=== PATIENT | male | born 1990 | race Caucasian/White ===

== ENCOUNTER 2017-02-23 06:54 | Inpatient (IN) | payer BC, OTHER ==
[~2017-02-23] VITALS: Ht 170.2 cm; Wt 72.6 kg
--- NOTE | 2017-02-23 06:45 | NUR ---
Pre-Admission Note: Patient assessed in intake office at 06:45 on 02/23/2017. Patient is ambulatory with steady gait, stable, A&OX4. Patient noted to be guarded and offers little information during assessment. Patient states that he is here to safely detox from methadone and lorazepam. Patient reports taking methadone 50mg daily for 2-3 years, having tapered down from 80mg which he took for 1.5 years. Patient last took methadone on 02/20/2017 at 06:00. Patient reports taking lorazepam 20mg daily for 3 years. Patient last took lorazepam on 02/22/2017. VS: 128/62, 104, 98.3, 16, 97% Spo2 on RA. Patient reports 6/10 generalized pain at this time. Patient also reports nausea, stomach cramps, chills, and sensitivity to light. Pupils are 4mm. Patient reports NKDA/NKFA. Patient instructed on unit protocol of vitals Q4H and COWS/CIWA assessments. Patient verbalized understanding and agreement. Patient also instructed on policy regarding destruction of any controlled substances/prescriptions brought to facility, and handling of all medications. Patient verbalized understanding and agreement. Day shift nurse to complete admission assessment when patient is brought up to unit.
[2017-02-23 09:05] VITALS: BP 115/67
[2017-02-23] MEDS ORDERED: ACETAMINOPHEN 325 MG TABLET PO PRN (09:45)
[2017-02-23] MEDS ORDERED: LORAZEPAM 1 MG TABLET PO PRN ×2 (09:45)
[2017-02-23] MEDS ORDERED: MAGNESIUM HYDROXIDE 30 ML LIQUID UDC PO PRN (09:45)
[2017-02-23] MEDS ORDERED: diphenhydrAMINE 50 MG CAPSULE PO PRN (09:45)
[2017-02-23] MEDS ORDERED: LORAZEPAM 2 MG/1 ML VIAL IM PRN (09:45)
[2017-02-23] MEDS ORDERED: IBUPROFEN 600 MG TABLET PO PRN (09:45)
[2017-02-23] MEDS ORDERED: LOPERAMIDE HCL 2 MG CAPSULE PO PRN ×2 (09:45)
[2017-02-23] MEDS ORDERED: MAG HYDROX/AL HYDROX/SIMETH 30 ML LIQUID UDC PO PRN (09:45)
[2017-02-23] MEDS ORDERED: ONDANSETRON 4 MG/2 ML VIAL IM PRN (09:45)
[2017-02-23] MEDS ORDERED: BUPRENORPHINE HCL 2 MG TAB.SUBL SL PRN ×2 (09:45→21:00)
[2017-02-23] MEDS ORDERED: CHLO118L TP (10:41)
[2017-02-23] MEDS ORDERED: OMEP20CA10 PO (10:42)
[2017-02-23] MEDS ORDERED: TEST200V3 IM (10:43)
[2017-02-23] MEDS ORDERED: NEOM28.37 TP (10:44)
[2017-02-23 10:48] LABS: BASOPHILS % (AUTO) 0.7 % (0.0-2.0); EOSINOPHILS % (AUTO) 0.6 % (0.0-7.0); HEMATOCRIT 42.1 % (36.7-47.1); HEMOGLOBIN 14.8 g/dL (12.5-16.3); LYMPHOCYTES # (AUTO) 1.2 K/uL (20.0-40.0); MEAN CORPUSCULAR HEMOGLOBIN 31.4 uug (23.8-33.4); MEAN CORPUSCULAR HGB CONC 35 g/dL (32.5-36.3); MEAN CORPUSCULAR VOLUME 88.8 fL (73.0-96.2); MONOCYTES # (AUTO) 0.2 K/uL (2.0-10.0); NEUTROPHILS # (AUTO) 2.7 K/uL (1.8-8.9); NEUTROPHILS % (AUTO) 64.7 % (38.5-71.5); PLATELET COUNT (AUTO) 319 K/uL (152-348); RED BLOOD CELL COUNT(AUTO) 4.73 MIL/uL (4.06-5.63); WHITE BLOOD COUNT (AUTO) 4.1 K/uL (3.6-10.2)
--- NOTE | 2017-02-23 11:00 | NUR ---
ADMISSION NOTE 26 year old admitted for methadone, ativan, percocet, and Heroin substance abuse. History of pituitary tumor treated with hormone medication and bilateral mastectomy 2 years ago. Had left carpal tunnel and left cubital tunnel surgery 2 weeks ago. History of anxiety and depression, constipation, stomach ulcer, multiple fractures when in high school due to competitive diving with fractures of collar bone, wrist, hip and tendon tear from hip to back due to diving as well. Skin check noting healing incision with steristrips to left elbow, no redness or drainage. Left hand incision form carpal tunnel release healed. Right shoulder with multiple old scars for which pt states he has had multiple MRSA wound infections from using Heroin IM. Substance history as follows. 1. Methadone, using 50 mg PO/day for 4 years, last dose 02/20/17 and took 50 mg PO at that time. 2. Heroin, intermittent use, last use 3 months ago, using Heroin x 3-4 years, states generally uses 0.5 gm per day IM. 3. Ativan, using 20 mg/day PO for 1 year. Last dose today, this am, took 4 mg. 4. Percocet 20-30 mg/day PO, using at this level for 1.5-2 months, last use today in am, took 5 mg. At 0944, COWS 10, CIWA 8. AT 1200 COWS 4 and CIWA 4, pt reporting no pain and stated original statement of pain 11/27 at 0944 due to surgical incisional pain. Oriented to unit. Call loco within reach. Bed in low position and locked. Side rails up x 2. Will continue to monitor.
[2017-02-23 11:06] LABS: ALANINE AMINOTRANSFERASE 22 U/L (16-63); ALKALINE PHOSPHATASE 69 U/L (50-136); ASPARTATE AMINOTRANSFERASE 18 U/L (15-37); BILIRUBIN,TOTAL 0.3 mg/dL (0.2-1.0); CARBON DIOXIDE 28 mmol/L (21-32); CHLORIDE 101 mmol/L (98-107); CREATININE 1.4 mg/dL (0.6-1.3); GLUCOSE 160 mg/dL (74-106); MAGNESIUM 1.6 mg/dL (1.8-2.4); POTASSIUM 3.8 mmol/L (3.5-5.1); TOTAL PROTEIN, SERUM 7.6 g/dL (6.4-8.2); UREA NITROGEN, BLOOD 22 mg/dL (7-18)
[2017-02-23 11:17] LABS: *AMPHETAMINE, URINE NEGATIVE (NEGATIVE); *BARBITURATE, URINE NEGATIVE (NEGATIVE); *CANNABINOID, URINE POSITIVE (NEGATIVE); *COCCAINE, URINE NEGATIVE (NEGATIVE); *OPIATE, URINE POSITIVE (NEGATIVE); *PHENCYCLIDINE SCREEN,URINE NEGATIVE (NEGATIVE)
[2017-02-23 11:40] LABS: ETHANOL < 3 MG/DL (0-0)
[2017-02-23 12:30] VITALS: BP 107/59
[2017-02-23] MEDS ORDERED: MAGNESIUM OXIDE 400 MG TABLET PO ONE (13:00)
[2017-02-23] MEDS: GABAPENTIN 300 MG CAPSULE PO SCH ×2 (14:29→21:58)
[2017-02-23] MEDS: DICYCLOMINE HCL 20 MG TABLET PO PRN (18:05)
[2017-02-23] MEDS: ONDANSETRON ODT 4 MG TAB.RAPDIS SL PRN (18:05)
[2017-02-23] MEDS: CLONIDINE HCL 0.1 MG TABLET PO PRN (18:05)
--- NOTE | 2017-02-23 18:05 | NUR ---
PRN MEDICATION ADMINISTRATION Given Ativan 1 mg po for COWS 6. Given Clonidine for anxiety, Bentyl and zofran for slight stomach cramps and slight nausea.
--- NOTE | 2017-02-23 19:05 | NUR ---
END OF SHIFT NOTE. 26 year old admitted for methadone, ativan, percocet and heroin substance disorder. COWS 6 at 1805, given Ativan 1 mg po PRN. 1805 given clonidine, bentyl and zofran PRN. Report given to night RN. Night RN states she will reassess PRN medication effectiveness. Call light within reach, bed in low position an locked, side rails up x 2. Safety measures observed.
--- NOTE | 2017-02-23 19:15 | NUR ---
START OF SHIFT Received 26 year old male patient admitted on 02/23/17 for Methadone, Heroin, Ativan and Percocet dependency. Pt is full code with allergy to Lunesta. Pt reports a PMHx of pituitary tumors, stomach ulcers, anxiety, and depression. Pt reports using Methadone 50 mg daily for 4 years. Last dose was 50 mg PO on 02/20/17. Heroin 0.5 gram IM daily for 4 years. Last dose was 0.5 grams 3 months ago. Ativan 20 mg PO daily for 1 year. Last dose was 4 mg on 02/23/17. And Percocet 20-30 mg daily for 1-2 months. Last dose was 5 mg on 02/23/17. Pt is scheduled to start 6 day Ativan and 6 day Subutex taper tomorrow 02/24/17. Per endorsement, pt noted with s/p left elbow ligament release sx. Pt noted with steristrips on left elbow. He received PRN Ativan, Clonidine, Zofran, and Bentyl. Pt is alert and oriented x4, breathing is even and unlabored. Safety measures in place. Will monitor.
[2017-02-23 20:00] VITALS: BP 100/49
[2017-02-23] MEDS ORDERED: LORAZEPAM 1 MG TABLET PO SCH (21:00)
[2017-02-24] VITALS: BP 99/57
--- NOTE | 2017-02-24 | NUR ---
COWS/CIWA DEFERRED Pt lying in bed with eyes closed noted to be asleep. Respirations 16, breathing is even and unlabored. Safety measures in place. Will monitor.
--- NOTE | 2017-02-24 04:00 | NUR ---
COWS/CIWA DEFERRED Pt lying in bed with eyes closed noted to be asleep. Respirations 16, breathing is even and unlabored. Safety measures in place. Will monitor.
--- NOTE | 2017-02-24 07:27 | NUR ---
END OF SHIFT Pt is a 26 year old male patient admitted on 02/23/17 for Methadone, Heroin, Ativan and Percocet dependency. Pt is full code with allergy to Lunesta. Pt reports a PMHx of pituitary tumors, stomach ulcers, anxiety, and depression. Pt is scheduled to start 6 day Ativan and 6 day Subutex taper today 02/24/17. He did not receive or request PRN medications. He slept a total of 10 hrs, Intake: 1000mL, Void: x2, BM:0, COWS:1. Pt remains alert and oriented x4, breathing is even and unlabored. Safety measures in place. Endorsed to oncoming shift.
--- NOTE | 2017-02-24 07:30 | NUR ---
Start Of Shift Report Received. Pt is a 26 year old male patient admitted on 02/23/17 for Methadone, Heroin, Ativan and Percocet dependency. Pt is full code with allergy to Lunesta. Pt reports a PMHx of pituitary tumors, stomach ulcers, anxiety, and depression. Pt is scheduled to start 6 day Ativan and 6 day Subutex taper today tolerating well. Pt did not receive any PRN medications last night per shift superintendent caustic cresylate note. He slept a total of 10 hrs. Encouraged pt to drink fluids to help facilitate with detox process. Pts last CIWA 6 COWS 6. Patient received awake, alert and oriented x3, All needs met, all safety measures in place, call light within reach bed in lowest locked position, will continue to monitor and provide care.
[2017-02-24 08:00] VITALS: BP 123/62
[2017-02-24 08:06] LABS: HEPATITIS B SURFACE AG Negative (Negative)
[2017-02-24] MEDS ORDERED: TUBERCULIN,PURIF.PROT.DERIV. 5 TU/0.1 ML TEST ID ONE (09:00)
[2017-02-24] MEDS: LORAZEPAM 1 MG TABLET PO SCH ×4 (09:41→21:08)
[2017-02-24] MEDS: ARIPIPRAZOLE 2 MG TABLET PO SCH (09:41)
[2017-02-24] MEDS: GABAPENTIN 300 MG CAPSULE PO SCH ×2 (09:41→16:38)
[2017-02-24] MEDS: ESCITALOPRAM OXALATE 10 MG TABLET PO SCH (09:41)
[2017-02-24] MEDS: MULTIVITAMINS,THERAPEUTIC TABLET PO SCH (09:41)
[2017-02-24] MEDS: BUPRENORPHINE HCL 2 MG TAB.SUBL SL SCH ×4 (09:42→21:08)
[2017-02-24 12:00] VITALS: BP 131/79
[2017-02-24] MEDS: DICYCLOMINE HCL 20 MG TABLET PO PRN (14:43)
[2017-02-24] MEDS: METHOCARBAMOL 750 MG TABLET PO PRN (14:43)
[2017-02-24] MEDS: CLONIDINE HCL 0.1 MG TABLET PO PRN (14:43)
[2017-02-24] MEDS: MIRALAX 17 GM POWD.PACK PO PRN (14:44)
[2017-02-24] MEDS: HYDROXYZINE PAMOATE 25 MG CAPSULE PO PRN (14:44)
[2017-02-24 16:00] VITALS: BP 136/80
--- NOTE | 2017-02-24 19:37 | NUR ---
End Of Shift Report Given. Pt is a 26 year old male patient admitted on 02/23/17 for Methadone, Heroin, Ativan and Percocet dependency. Pt is full code with allergy to Lunesta. Pt reports a PMHx of pituitary tumors, stomach ulcers, anxiety, and depression. Pt is scheduled to start 6 day Ativan and 6 day Subutex taper today tolerating well. VS monitored closely q 4 hours. Withdrawal symptoms were closely monitored. Initial CIWA 9 and COWS 12. Patient encouraged adequate PO fluid intake as tolerated. Patient presented with tremors and anxiety during the day. Last CIWA and COWS 7. Per patient, Taper medications have been helping him with his withdrawal symptoms. Pt ate all of his meals. Pt received PRN Robaxin, Bentyl, Vistaril, Tylenol, Zofran IM, Clonidine, Miralax which were effective. Patient encouraged to attend group therapies/sessions to learn new coping skills to recent relapse, patient denies SI/HI. Participated in group and therapy sessions. All needs met and attended
--- NOTE | 2017-02-24 19:40 | NUR ---
START OF SHIFT Pt is a 26 year old male patient admitted for Methadone, Heroin, Ativan and Percocet dependency. Pt is full code with allergy to Lunesta. Pt reports a PMH of pituitary tumors, stomach ulcers, anxiety, and depression. Pt continues on Ativan and Subutex taper as ordered and is tolerating well. Last CIWA=7 and COWS=7. Pt received awake in bed in stable condition.Pt is A/O X 4.All safety measures in place per hospital policy,call light within reach. All needs met and attended,will continue to monitor for safety.
[2017-02-24 20:00] VITALS: BP 120/70
[2017-02-24] MEDS ORDERED: GABAPENTIN 300 MG CAPSULE PO SCH (21:00)
[2017-02-24] MEDS ORDERED: GABAPENTIN 300 MG CAPSULE ONE (21:20)
[2017-02-25] VITALS: BP 109/64
--- NOTE | 2017-02-25 04:00 | NUR ---
COWS/CIWA DEFERRED,V/S REFUSED. Pt is resting in bed with eyes closed,fast asleep. Respirations are even and unlabored.No s/s of distress noted. Safety measures in place. Will continue to monitor.
--- NOTE | 2017-02-25 06:41 | NUR ---
END OF SHIFT Pt is a 26 year old male patient admitted for Methadone, Heroin, Ativan and Percocet dependency. Pt is full code with allergy to Lunesta. Pt reports a PMHx of pituitary tumors, stomach ulcers, anxiety, and depression. Pt continues on Ativan and Subutex taper as ordered and is tolerating well. Last CIWA =4 and COWS =3. No PRN meds given this shift.Pt slept 6.5 hrs,fluid intake was 1,000 mls,voided x 1.All safety measures in place per hospital policy,call light within reach. All needs met and attended,will continue to monitor for safety.
--- NOTE | 2017-02-25 07:40 | NUR ---
START OF SHIFT NOTE Received report from night nurse, 26 year old male for Methadone/ Heroin/Ativan/Percocet dependence. Pt reports a PMH of pituitary tumors, stomach ulcers, anxiety, and depression. Patient cont on Ativan/Subutex taper tolerating well. Per endorsement pt did not receive any PRN, last CIWA-4, COWS-3, Pt slept fro 7 hours. Patient received awake, alert and oriented x4, educated regarding plan of care for the day and medication regimen with good verbal understanding. Safety measures in place. call light kept with in reach, will continue to monitor.
[2017-02-25 08:00] VITALS: BP 126/76
[2017-02-25] MEDS ORDERED: GABAPENTIN 300 MG CAPSULE PO SCH ×2 (09:00→21:00)
[2017-02-25] MEDS: ARIPIPRAZOLE 2 MG TABLET PO SCH (09:24)
[2017-02-25] MEDS: MULTIVITAMINS,THERAPEUTIC TABLET PO SCH (09:24)
[2017-02-25] MEDS: ESCITALOPRAM OXALATE 10 MG TABLET PO SCH (09:25)
[2017-02-25] MEDS: LORAZEPAM 1 MG TABLET PO SCH ×3 (09:25→21:00)
[2017-02-25] MEDS: BUPRENORPHINE HCL 2 MG TAB.SUBL SL SCH ×3 (09:25→21:01)
[2017-02-25] MEDS: METHOCARBAMOL 750 MG TABLET PO PRN (09:37)
--- NOTE | 2017-02-25 09:37 | NUR ---
PRN ROBAXIN Pt c/o of muscle aches 10/28, Pt provided with non pharmacological intervention with no relief. Administered PRN Robaxin 750mg Po 1 tab as ordered. Will cont to monitor and reassess.
--- NOTE | 2017-02-25 10:37 | NUR ---
ROBAXIN REASSESSMENT Pt reported medication effective muscle aches subside to 2/.
[2017-02-25 12:00] VITALS: BP 128/78
[2017-02-25] MEDS: ONDANSETRON ODT 4 MG TAB.RAPDIS SL PRN (13:13)
[2017-02-25] MEDS: CLONIDINE HCL 0.1 MG TABLET PO PRN (13:14)
--- NOTE | 2017-02-25 13:14 | NUR ---
PRN ZOFRAN/CLONIDINE Pt c/o of nausea,anxiety, agitation, sweats. Pt provided with non pharmacological intervention with no relief. Administered PRN Zofran 4mg SL, Clonidine 0.1 mg Po as ordered. Will cont to monitor and reassess.
--- NOTE | 2017-02-25 13:34 | NUR ---
CRISTEL REASSESSMENT pt reported medication effective nausea improved. Addendum: 02/25/17 at 1453 by ELSI WALKER LVN [id number] correct time
[2017-02-25] MEDS ORDERED: IBUPROFEN 600 MG TABLET PO PRN (13:45)
[2017-02-25] MEDS ORDERED: IBUPROFEN 800 MG TABLET PO PRN (14:00)
--- NOTE | 2017-02-25 14:14 | NUR ---
CLONIDINE REASSESSMENT Pt reported medication effective anxiety/agitation/ subside and decreased sweats.
[2017-02-25] MEDS: ACETAMINOPHEN ES 500 MG TABLET PO SCH ×2 (14:27→20:59)
[2017-02-25] MEDS: GABAPENTIN 300 MG CAPSULE PO SCH (14:29)
--- NOTE | 2017-02-25 15:52 | NUR ---
CARE ENDORSED All pertinent information given and care endorsed to nurse in charge.
[2017-02-25 16:00] VITALS: BP 110/62
--- NOTE | 2017-02-25 16:00 | NUR ---
RECEIVED ENDORSMENT FOR CONTINUED CARE 26 year old male for Methadone/ Heroin/Ativan/Percocet dependence. Pt reports a PMH of pituitary tumors, stomach ulcers, anxiety, and depression. Patient cont on Ativan/Subutex taper tolerating well. 1600 rounds patient not in room, is in group. Will continue to monitor.
[2017-02-25] MEDS: HYDROXYZINE PAMOATE 25 MG CAPSULE PO PRN (17:00)
--- NOTE | 2017-02-25 17:00 | NUR ---
PRN MEDICATION ADMINISTRATION Complaint of anxiety 11/27. Given Vistaril PRN.
--- NOTE | 2017-02-25 19:00 | NUR ---
END OF SHIFT NOTE Received report from day nurse going home at 1530, care of patient received. 26 year old male for Methadone/ Heroin/Ativan/Percocet dependence. Pt reports a PMH of pituitary tumors, stomach ulcers, anxiety, and depression. Patient cont on Ativan/Subutex taper tolerating well. At 1700, CIWA 5, COWS 5. Reporting anxiety, given Vistaril at 1700 PRN. 1800 Pt reporting decrease in anxiety. Report given to night RN. Bed in low position and locked, side rails up x 2 and padded, call loco within reach.
--- NOTE | 2017-02-25 19:25 | NUR ---
START OF SHIFT Patient is a 26-year-old male, admitted on 02/23/17 for Methadone, Heroin, Ativan, and Percoet substance abuse. Patient has past medical history of pituitary tumor, treated with hormone therapy and s/p bilateral mastectomy 2 years ago. PMHx also includes anxiety, depression, stomach ulcers, constipation, s/p carpal tunnel of left wrist and left elbow 2 weeks ago (steri-strips in place), and several past fractures related to diving in high school. Patient is FULL CODE, allergic to Lunesta, and on regular diet. Patient is on 6 day Ativan taper and 6 day Subutex taper, tolerating well. Upon assessment, patient is awake, alert and oriented x4. Patient's steri-strips at left elbow are in place, no signs of redness or inflammation noted. Patient complains of mild-moderate levels of anxiety and bilateral lower extremity muscle aches. Respirations are even and unlabored. Patient is on fall and seizure precautions, bed is in low position, side rails up x2, safety measures in place, call light within reach. Will continue to monitor. Addendum: 02/26/17 at 2343 by GILES SPIVEY LVN ERROR IN DATE AND TIME
[2017-02-25 20:00] VITALS: BP 121/70
--- NOTE | 2017-02-25 20:00 | NUR ---
Start of Shift Pt is a 26 year old male admitted for Opiate/Benzo dependence, placed on 5 day Ativan and 5 day Subutex taper. Pt reported using methadone 50mg/daily, Heroin 0.5g/daily, Ativan 20mg/daily and Percocet 20-30mg/daily. PMH: Pituitary tumor, bilateral mastectomy 2 years ago, left carpal tunnel and left cubital tunnel surgery 2 weeks ago, anxiety, depression, constipations, stomach ulcer, multiple factures of collar bone, wrist, hip and tendon tear from hip to back. Pt is allergic to eszopiclone, regular diet, fall/seizure precautions and full code. Upon assessment, pt presents with anxiety, reports bilateral lower extremity muscle aches, skin is flushed, reports hot/cold, respirations even/unlabored, denies SOB/chest pain, denies n/v/d, medications due. Safety measures in place, call light within reach, side rails up x2, bed locked and in low position. Will continue to monitor.
[2017-02-26] VITALS: BP 101/69
--- NOTE | 2017-02-26 | NUR ---
Vital Signs BP 101/69, pulse 78, resp 16, Spo2 98% room air, temp 97.8, no pain CIWA/COWS deferred due to pt sleeping, to assess while pt is awake as ordered. Safety measures in place, will continue to monitor.
[2017-02-26 04:00] VITALS: BP 113/67
--- NOTE | 2017-02-26 04:00 | NUR ---
Vital Signs BP 113/67, pulse 82, resp 16, Spo2 99% room air, temp 98.1, no pain CIWA/COWS deferred due to pt sleeping, to assess while pt is awake as ordered. Safety measures in place, will continue to monitor.
--- NOTE | 2017-02-26 07:00 | NUR ---
End of Shift Pt is a 26 year old male admitted for Opiate/Benzo dependence, placed on 5 day Ativan and 5 day Subutex taper. Pt reported using methadone 50mg/daily, Heroin 0.5g/daily, Ativan 20mg/daily and Percocet 20-30mg/daily. PMH: Pituitary tumor, bilateral mastectomy 2 years ago, left carpal tunnel and left cubital tunnel surgery 2 weeks ago, anxiety, depression, constipations, stomach ulcer, multiple factures of collar bone, wrist, hip and tendon tear from hip to back. Pt is allergic to eszopiclone, regular diet, fall/seizure precautions and full code. During shift, pt presented with anxiety, reported bilateral lower extremity muscle aches, skin is flushed, reports hot/cold - scheduled taper medications administered, CIWA 7 and COWS 7. No PRN medications administered during shift. Pt slept for 6 hours, intake of 500 ml PO, voids x1 and stool x0. Safety measures in place, call light within reach, side rails up x2, bed locked and in low position. Will continue to monitor.
--- NOTE | 2017-02-26 07:38 | NUR ---
START OF SHIFT Pt is a 26 yr old male, AA&Ox4. Pt was admitted on 02/23/17 for Opiate/Benzo Dependence and is on 5 day Ativan and 5 day Subutex taper as ordered. Medication dina well. Received report from control center operator nurse. No PRN's were given during the night. Pt slept for 6 hrs. Last COWS score was 7, CIWA score was 7 at 2000. Pt is c/o anxiety this morning but is able to cope with anxiety level. Skin is warm and dry to touch. Fine tremors are observed. Pt denies any n/v. Encouraged increase fluid intake. Safety precautions observed. Bed kept in low position and locked with side rails up x2. Call light is within reach. Will continue to monitor.
[2017-02-26 08:08] VITALS: BP 98/54
[2017-02-26] MEDS: ACETAMINOPHEN ES 500 MG TABLET PO SCH ×3 (08:54→21:53)
[2017-02-26] MEDS: MULTIVITAMINS,THERAPEUTIC TABLET PO SCH (08:54)
[2017-02-26] MEDS: GABAPENTIN 300 MG CAPSULE PO SCH (08:54)
[2017-02-26] MEDS: ARIPIPRAZOLE 2 MG TABLET PO SCH (08:54)
[2017-02-26] MEDS: LORAZEPAM 1 MG TABLET PO SCH ×2 (08:54→12:40)
[2017-02-26] MEDS: ESCITALOPRAM OXALATE 10 MG TABLET PO SCH (08:55)
[2017-02-26] MEDS ORDERED: BUPRENORPHINE HCL 2 MG TAB.SUBL SL SCH (09:00)
[2017-02-26 12:00] VITALS: BP 113/62
--- NOTE | 2017-02-26 12:22 | NUR ---
NSG NOTES Pt's urine drug screen was positive for marijuana. Pt states "I smoke randomly". Pt can not recall last use.
[2017-02-26] MEDS: METHOCARBAMOL 750 MG TABLET PO PRN (12:49)
[2017-02-26] MEDS: CLONIDINE HCL 0.1 MG TABLET PO PRN (12:49)
--- NOTE | 2017-02-26 12:49 | NUR ---
PRN GIVEN Pt c/o increase anxiety and muscle aching /10. Clonidine 0.1mg PO PRN and Robaxin 750mg PO PRN as ordered. Medication dina well. Ativan 1mg PO was administered as scheduled at 1300. Medication dina well. Will continue to monitor.
--- NOTE | 2017-02-26 13:49 | NUR ---
PRN RE-ASSESSMENT Clonidine PO PRN and Robaxin PRN was effective. Pt is in bed resting with respirations even and unlabored. No acute distress noted. Safety precautions observed. Will continue to monitor.
[2017-02-26] MEDS: BACLOFEN 10 MG TABLET PO SCH ×2 (14:46→21:53)
[2017-02-26] MEDS: GABAPENTIN 400 MG CAPSULE PO SCH ×2 (14:46→21:52)
[2017-02-26] MEDS: BUPRENORPHINE HCL 2 MG TAB.SUBL SL SCH ×2 (14:46→21:53)
[2017-02-26] MEDS ORDERED: NAPROXEN 500 MG TABLET PO ONE (15:00)
[2017-02-26 16:00] VITALS: BP 116/77
[2017-02-26] MEDS ORDERED: LORAZEPAM 1 MG TABLET PO SCH ×2 (17:00→21:00)
--- NOTE | 2017-02-26 18:50 | NUR ---
END OF SHIFT Pt is a 26 yr old male, AA&Ox4. Pt was admitted on 02/23/17 for Opiate/Benzo Dependence and is on 5 day Ativan and 5 day Subutex taper as ordered. Medication dina well. Pt has been cooperative with medication regimen and plan of care. Pt was observed attending group sessions as offered. Pt was given Clonidine PRN and Robaxin PRN at 1249 for anxiety and muscle aching. Medication was effective. Last COWS score was 6 and CIWA score was 5 at 1600. Pt is c/o anxiety. Skin is warm and dry to touch. No tremors seen or felt. Pt is c/o abdominal cramping and muscle aches but is able to tolerate pain level. Pt was encouraged increase fluid intake for hydration. Safety precautions observed. Bed kept in low position and locked with side rails up x2. Call light is within reach.
--- NOTE | 2017-02-26 19:25 | NUR ---
START OF SHIFT Patient is a 26-year-old male, admitted on 02/23/17 for Methadone, Heroin, Ativan, and Percoet substance abuse. Patient has past medical history of pituitary tumor, treated with hormone therapy and s/p bilateral mastectomy 2 years ago. PMHx also includes anxiety, depression, stomach ulcers, constipation, s/p carpal tunnel of left wrist and left elbow 2 weeks ago (steri-strips in place), and several past fractures related to diving in high school. Patient is FULL CODE, allergic to Lunesta, and on regular diet. Patient is on 6 day Ativan taper and 6 day Subutex taper, tolerating well. Upon assessment, patient is awake, alert and oriented x4. Patient's steri-strips at left elbow are in place, no signs of redness or inflammation noted. Patient complains of mild-moderate levels of anxiety and bilateral lower extremity muscle aches. Respirations are even and unlabored. Patient is on fall and seizure precautions, bed is in low position, side rails up x2, safety measures in place, call light within reach. Will continue to monitor.
[2017-02-26 20:00] VITALS: BP 115/67
[2017-02-26] MEDS: NAPROXEN 500 MG TABLET PO SCH (21:53)
[2017-02-26] MEDS: CLONIDINE HCL 0.1 MG TABLET PO SCH (21:54)
[2017-02-26] MEDS: ONDANSETRON ODT 4 MG TAB.RAPDIS SL PRN (23:11)
--- NOTE | 2017-02-26 23:11 | NUR ---
PRN ZOFRAN Patient complains of nausea, no emesis reported. SL Zofran 4mg given at 2311. Patient's respirations are even and unlabored. Will reassess within an hour. Safety measures in place, bed in lowest position, side rails up x2, call light within reach.
[2017-02-26] MEDS: KETOROLAC TROMETHAMINE 30 MG INJ IM PRN (23:18)
--- NOTE | 2017-02-26 23:18 | NUR ---
PRN TORADOL Patient complains of pain 8/10 at incision site, left elbow; requesting pain medication. PRN Toradol 30mg/1mL IV given at 2318 at left deltoid; patient tolerated well. Patient's respirations are even and unlabored. Safety measures in place, bed in lowest position, side rails up x2, call light within reach.
--- NOTE | 2017-02-26 23:41 | NUR ---
PRN ZOFRAN REASSESSMENT Upon reassessment, PRN Zofran was effective. Patient denies nausea at this time. Patient's respirations even and unlabored, safety measures in place. Will continue to monitor.
--- NOTE | 2017-02-26 23:48 | NUR ---
PRN TORADOL REASSESSMENT Upon reassessment, PRN Toradol was effective. Patient reports pain level is now 4/10 at incision site (left elbow). No swelling, redness or inflammation noted at incision site at this time. Patient's respirations are even and unlabored, safety measures in place, call light within reach. Will continue to monitor.
[2017-02-27 00:05] VITALS: BP 114/72
--- NOTE | 2017-02-27 00:32 | NUR ---
ENDER CONTE AND VISTARIL ADMINISTRATION PATIENT STATES HE'S ANXIOUS, UNABLE TO SLEEP, RESTLESS AND NOTED PACING AROUND UNIT.WILL MONITOR FOR EFFECTIVENESS. Addendum: 02/28/17 at 0157 by ROXY SALVADOR LVN ERROR IN CHARTING.
--- NOTE | 2017-02-27 04:00 | NUR ---
VITAL SIGNS REFUSED, CIWA & COWS DEFERRED Patient refused to have vitals taken at 0400; respirations 16/min, even and unlabored. CIWA and COWS deferred due to patient being asleep, to be assessed while awake per protocol. Safety measures in place, bed in low position with side rails up x2, call light within reach. Will continue to monitor.
--- NOTE | 2017-02-27 07:30 | NUR ---
END OF SHIFT Patient is a 26-year-old male, admitted on 02/23/17 for Methadone, Heroin, Ativan, and Percoet substance abuse. Patient is FULL CODE, allergic to Lunesta, and on regular diet. Patient is on 6 day Ativan taper and 6 day Subutex taper, tolerating well. PRN Zofran 4mg SL was given at 2311 for c/o nausea; upon reassessment at 2341, medication was effective. Patient denied nausea. PRN Toradol 30mg/1mL IM was administered at 2318 at patients left deltoid, for c/o pain 8/10 at patients left elbow incision site; patient tolerated well. Upon reassessment at 2348, patient reported that pain level had decreased from 8/10 to 4/10. Patient is alert and oriented x4. Patients steri-strips at left elbow are in place, no signs of redness or inflammation noted; no discharge at this time. Patient slept total of 3.5 hrs, intake 1210mL, void x2, stool x0. Respirations are even and unlabored. Patient is on fall and seizure precautions, bed is in low position, side rails up x2, safety measures in place, call light within reach. Will endorse to day shift.
[2017-02-27 08:00] VITALS: BP 117/72
--- NOTE | 2017-02-27 08:00 | NUR ---
START OF SHIFT NOTE Patient is a 26-year-old male, admitted on 02/23/17 for Methadone, Heroin, Ativan, and Percoet substance abuse. Patient is FULL CODE, allergic to Lunesta, and on regular diet. Patient is on 6 day Ativan taper and 6 day Subutex tape. Received report from night RN. Received Zofran and Toradol PRN. Last CIWA 3 and COWS 3. On 0800 pt rounds, pt alert and oriented. Bed in low position and locked, side rails up x 2, call loco within reach. Will continue to monitor.
--- NOTE | 2017-02-27 08:00 | NUR ---
START OF SHIFT NOTE 28 year old male admitted 02/21/17 for ETOH substance abuse. ON 5 day ativan taper. NKA. Reg diet, full code. Hx anxiety, depression, Bipolar disorder. No history of seizure. Received report from night RN. Received zofran and toradol PRN. Last COWS 3 and CIWA 3. 0800 pt rounds, pt alert and oriented. . Bed in low position and locked, side rails up x 2, call loco within reach. Will continue to monitor. Addendum: 02/27/17 at 1921 by JERMAN DOYLE RN ERROR, note entered on wrong patient. Disregard note.
[2017-02-27] MEDS: GABAPENTIN 400 MG CAPSULE PO SCH (08:58)
[2017-02-27] MEDS: BACLOFEN 10 MG TABLET PO SCH (08:58)
[2017-02-27] MEDS: ACETAMINOPHEN ES 500 MG TABLET PO SCH ×3 (08:59→21:03)
[2017-02-27] MEDS: ARIPIPRAZOLE 2 MG TABLET PO SCH (08:59)
[2017-02-27] MEDS: NAPROXEN 500 MG TABLET PO SCH ×2 (08:59→21:02)
[2017-02-27] MEDS ORDERED: LORAZEPAM 1 MG TABLET PO SCH (09:00)
[2017-02-27] MEDS: BUPRENORPHINE HCL 2 MG TAB.SUBL SL SCH ×3 (09:00→21:03)
[2017-02-27] MEDS: ESCITALOPRAM OXALATE 10 MG TABLET PO SCH (09:01)
[2017-02-27] MEDS: FAMOTIDINE 20 MG TABLET PO SCH (09:01)
[2017-02-27] MEDS: MULTIVITAMINS,THERAPEUTIC TABLET PO SCH (09:01)
[2017-02-27] MEDS: CLONIDINE HCL 0.1 MG TABLET PO SCH ×3 (09:01→21:03)
[2017-02-27 09:11] LABS: CREATININE 0.9 mg/dL (0.6-1.3); MAGNESIUM 1.9 mg/dL (1.8-2.4); POTASSIUM 4.5 mmol/L (3.5-5.1)
[2017-02-27 12:00] VITALS: BP_SYST 116; BP_SYST 120; BP_DIAS 74; BP_DIAS 84
--- NOTE | 2017-02-27 13:10 | NUR ---
PRN MEDICATION ADMINISTRATION At 1310, pt states he has a cold with sore throat, body aches, cough. Given Tylenol, robaxin, robitussin syrup, and cepacol lozenges. Also reports anxiety. Given Clonidine PRN. Addendum: 02/27/17 at 1921 by JERMAN DOYLE RN ERROR, note entered on wrong patient. Disregard note.
[2017-02-27] MEDS ORDERED: BUPRENORPHINE HCL 2 MG TAB.SUBL SL ONE (13:30)
--- NOTE | 2017-02-27 14:10 | NUR ---
PRN MEDICATION REASSESSMENT 1409, pt reports sore throat, cough and body aches relieved. Continues to report anxiety, but states Dr. Upton stated he will receive and additional ativan today so does not want any other PRN medications. RN notified pt that Ativan has not been ordered at this time. Anticipating discharge tomorrow. Addendum: 02/27/17 at 1920 by JERMAN DOYLE RN ERROR, note entered on wrong patient. Disregard note.
[2017-02-27] MEDS: GABAPENTIN 300 MG CAPSULE PO SCH ×2 (14:32→21:02)
[2017-02-27] MEDS: DICYCLOMINE HCL 20 MG TABLET PO SCH ×2 (14:33→21:01)
[2017-02-27] MEDS: DIAZEPAM 10 MG TABLET PO SCH ×2 (14:34→21:03)
[2017-02-27] MEDS: BACLOFEN 20 MG TABLET PO SCH ×2 (14:34→21:02)
[2017-02-27] MEDS: KETOROLAC TROMETHAMINE 30 MG INJ IM PRN (14:53)
--- NOTE | 2017-02-27 14:53 | NUR ---
PRN MEDICATION ADMINISTRATION Given Vistaril for post surgical pain from cubital tunnel release, 09/27
--- NOTE | 2017-02-27 15:23 | NUR ---
PRN MEDICATION REASSESSMENT Given Vistaril for post surgical pain from cubital tunnel release, reported good pain relief with vistaril.
[2017-02-27 16:30] VITALS: BP 119/75
--- NOTE | 2017-02-27 19:19 | NUR ---
END OF SHIFT NOTE 28 year old male admitted 02/21/17 for ETOH substance abuse. ON 5 day ativan taper. NKA. Reg diet, full code. Hx anxiety, depression, Bipolar disorder. No history of seizure. At 0948, door closer mechanic with CIWA 20. Dr. pUton notified. Dr. Upton requested rn relief charge to assess CIWA. Charge nurse assess CIWA as 8. MD notified. At 1200 and at 1730, CIWA 8. Appetite good with consumption 100 percent for all meals. Fluid intake 1500 mls. At 1310, pt states he has a cold with sore throat, body aches, cough. Given Tylenol, robaxin, robitussin syrup, and cepacol lozenges. Also reports anxiety. Given Clonidine PRN. 1410, pt reports sore throat, cough and body aches relieved. Continues to report anxiety, but states Dr. Upton stated he will receive and additional ativan today so does not want any other PRN medications. RN notified pt that Ativan has not been ordered at this time. Anticipating discharge tomorrow. At 1730, pt reports anxiety but refused Vistaril PRN. Report given to night RN. Bed in low position and locked, side rails up x 2, call loco within reach. Addendum: 02/27/17 at 1921 by JERMAN DOYLE RN ERROR, note entered on wrong patient. Disregard note. Addendum: 02/27/17 at 1926 by JERMAN DOYLE RN ERROR. NOTE ENTERED FOR WRONG PATIENT. DISREGARD NOTE.
--- NOTE | 2017-02-27 19:29 | NUR ---
END OF SHIFT NOTE Patient is a 26-year-old male, admitted on 02/23/17 for Methadone, Heroin, Ativan, and Percoet substance abuse. Patient is FULL CODE, allergic to Lunesta, and on regular diet. Patient is on 6 day Ativan taper and 6 day Subutex taper, tolerating well with last COWS 2and CIWA 3. Given Vistaril for post surgical pain from cubital tunnel release, reported good pain relief with vistaril. Appetite good, eating 100 percent of meals, 1738 ml fluid intake, one void. Report given to night RN. Bed in low position and locked, side rails up x 2, call loco within reach.
[2017-02-27 20:00] VITALS: BP 111/68
--- NOTE | 2017-02-27 20:00 | NUR ---
START OF SHIFT NOTE RECEIVED REPORT FROM DAY SHIFT NURSE. PATIENT IS A 26 YEAR OLD MALE ADMITTED FOR OPIATE/BENZO DEPENDENCE. CONTINUE ON ATIVAN AND SUBUTEX TAPER, TOLERATED WELL. PATIENT IS ALLERGIC TO LUNESTA. PATIENT COMPLIANT WITH MEDICATION AND TREATMENT PLAN. PATIENT WAS ANXIOUS DURING THE DAY. PATIENT WAS GIVEN EXTRA VALIUM AND PRN TORADOL IM . LAST COWS 2 AND CIWA 3. RECEIVED PATIENT ALERT AND ORIENTED X 4. RESPIRATION EVEN AND UNLABORED. PATIENT REPORTS SEVERE ANXIETY, STUFFY NOSE, NO N/V, PAIN ON LEFT ELBOW /10. APPETITE IS GOOD. ON FALL/SEIZURE PRECAUTION. SAFETY MEASURES IN PLACE. CALL LIGHT IN REACH. WILL CONTINUE TO MONITOR Addendum: 02/28/17 at 0725 by ROXY SALVADOR LVN ERROR: PATIENT IS ON VALIUM TAPER NOW , HE WAS ON ATIVAN TAPER.
--- NOTE | 2017-02-27 21:16 | NUR ---
PRN MOM ADMINISTRATION PATIENT STATES HE DOESN'T HAVE BM .PRN MOM GIVEN. WILL MONITOR FOR EFFECTIVENESS. ENCOURAGE FLUIDS.
[2017-02-28] VITALS: BP 114/64
[2017-02-28] MEDS: HYDROXYZINE PAMOATE 25 MG CAPSULE PO PRN (00:32)
--- NOTE | 2017-02-28 00:32 | NUR ---
PRN CATAPRES AND VISTARIL ADMINISTRATION PATIENT STATES HE'S ANXIOUS, UNABLE TO SLEEP, RESTLESS AND NOTED PACING AROUND UNIT.WILL MONITOR FOR EFFECTIVENESS.
[2017-02-28] MEDS: CLONIDINE HCL 0.1 MG TABLET PO PRN (00:34)
--- NOTE | 2017-02-28 01:32 | NUR ---
PRN CATAPRES AND VISTARIL RE-ASSESSMENT PATIENT STATES HE FEELS MUCH BETTER, LESS ANXIOUS. CATAPRES AND VISTARIL HELPFUL. WILL CONTINUE TO MONITOR.
[2017-02-28] MEDS: KETOROLAC TROMETHAMINE 30 MG INJ IM PRN ×2 (01:37→23:06)
--- NOTE | 2017-02-28 01:37 | NUR ---
PRN TORADOL IM ADMINISTRATION PATIENT C/O LEFT ELBOW PAIN 12/19. PRN TORADOL IM. WILL MONITOR FOR EFFECTIVENESS
--- NOTE | 2017-02-28 02:37 | NUR ---
TORADOL IM RE-ASSESSMENT PATIENT SLEEPING COMFORTABLY. NO FACIAL GRIMACING NOTED. RESPIRATION EVEN AND UNLABORED. WILL CONTINUE TO MONITOR.
[2017-02-28 04:00] VITALS: BP 114/64
--- NOTE | 2017-02-28 04:00 | NUR ---
COWS AND CIWA DEFERRED PATIENT SLEEPING .COWS AND CIWA DEFERRED. RESPIRATION EVEN AND UNLABORED. SAFETY MEASURES IN PLACE. CALL LIGHT IN REACH. WILL CONTINUE TO MONITOR.
--- NOTE | 2017-02-28 07:23 | NUR ---
END OF SHIFT NOTE PATIENT CONTINUE ON VALIUM AND SUBUTEX TAPER, TOLERATED WELL, NO ADVERSE REACTION. PATIENT COMPLIANT WITH MEDICATION AND TREATMENT PLAN. LAST COWS 2 AND CIWA 3. RECEIVED PATIENT ALERT AND ORIENTED X 4. RESPIRATION EVEN AND UNLABORED. PATIENT REPORTED SEVERE ANXIETY, STUFFY NOSE, NO N/V, PAIN ON LEFT ELBOW 09/27. APPETITE IS GOOD. ON FALL/SEIZURE PRECAUTION. SAFETY MEASURES IN PLACE. CALL LIGHT IN REACH. WILL CONTINUE TO MONITOR.SLEPT 4 HOURS. FLUID INTAKE 1,150 ML. VOIDED X 2. NO BM. LAST COWS 4 AND CIWA 2. Addendum: 02/28/17 at 0724 by ROXY SALVADOR LVN ENDORSED TO NEXT SHIFT NURSE. MOM INEFFECTIVE.
[2017-02-28 08:00] VITALS: BP 125/65
--- NOTE | 2017-02-28 08:15 | NUR ---
START OF SHIFT: RECEIVED PT A/O X 4 . HE PRESENTS WITH ANXIOUS MOOD AND CONGRUENT AFFECT. HE REPORTS RESTLESS SLEEP,RESTLESSNESS,MILD BODY ACHES AND ANXIETY.VALIUM/SUBUTEX TAPER IN PROGRESS. CIWA 3 COWS 4. ENCOURAGED INCREASED FLUIDS TO ASSIST IN FACILITATING DETOX PROCESS. ENCOURAGED GROUP ATTENDANCE TO IMPROVE COPING SKILLS AND PREVENT RELAPSE. WILL CONTINUE TO MONITOR AND OFFER SUPPORT.
[2017-02-28] MEDS: ESCITALOPRAM OXALATE 10 MG TABLET PO SCH (08:38)
[2017-02-28] MEDS: GABAPENTIN 300 MG CAPSULE PO SCH ×3 (08:38→20:18)
[2017-02-28] MEDS: BACLOFEN 20 MG TABLET PO SCH ×3 (08:39→20:19)
[2017-02-28] MEDS: DIAZEPAM 5 MG TABLET PO SCH ×3 (08:39→20:19)
[2017-02-28] MEDS: NAPROXEN 500 MG TABLET PO SCH ×2 (08:39→20:19)
[2017-02-28] MEDS: ARIPIPRAZOLE 2 MG TABLET PO SCH (08:39)
[2017-02-28] MEDS: DICYCLOMINE HCL 20 MG TABLET PO SCH ×3 (08:40→20:19)
[2017-02-28] MEDS: BUPRENORPHINE HCL 2 MG TAB.SUBL SL SCH ×3 (08:40→20:20)
[2017-02-28] MEDS: ACETAMINOPHEN ES 500 MG TABLET PO SCH ×3 (08:41→20:18)
[2017-02-28] MEDS: FAMOTIDINE 20 MG TABLET PO SCH (08:41)
[2017-02-28] MEDS: MULTIVITAMINS,THERAPEUTIC TABLET PO SCH (08:41)
[2017-02-28] MEDS: CLONIDINE HCL 0.1 MG TABLET PO SCH ×3 (08:43→20:20)
[2017-02-28] MEDS ORDERED: BUPRENORPHINE HCL 2 MG TAB.SUBL SL SCH (09:00)
[2017-02-28] MEDS ORDERED: LORAZEPAM 1 MG TABLET PO SCH (09:00)
--- NOTE | 2017-02-28 10:48 | NUR ---
Therapist prompted client about group times. Client stated he will attend all groups today.
[2017-02-28 12:00] VITALS: BP 116/72
[2017-02-28] MEDS ORDERED: PATIENT MAY USE OWN MED- MD OK IM ONE ×2 (13:00→14:45)
[2017-02-28 16:00] VITALS: BP 118/60
--- NOTE | 2017-02-28 19:11 | NUR ---
END OF SHIFT: PT CONTINUES ON VALIUM/SUBUTEX TAPER.LAST CIWA 3 COWS 4. HE STATES DETOX MDS ARE EFFECTIVE. HE IS COMPLIANT WITH GROUPS. HE IS COMPLIANT WITH MEDS. NO PRNS GIVEN THIS SHIFT. WILL PASS SHIFT REPORT TO ONCOMING NIGHT NURSE.
--- NOTE | 2017-02-28 19:15 | NUR ---
Start of shift note Received report from day shift nurse. Pt is a 26 yo male, A+Ox4, presenting to [facility] for Opiate/Benzo dependence. Pt has allergies to Lunesta, is on Full code status, and on Regular diet. Pt is on Fall and Seizure precautions. Pt has HX of Pituitary tumor, stomach ulcer, bilateral mastectomy, anxiety, depression, and multiple fractures. Pt is on 7 day Subutex and 3 day Valium tapers tolerated well. No s/s of distress noted at this time. Respirations even and unlabored. Will continue to monitor.
[2017-02-28 20:45] VITALS: BP 115/73
--- NOTE | 2017-02-28 23:06 | NUR ---
PRN Toradol Pt c/o Left elbow pain 11/27 and requested for PRN Toradol. Medication given and tolerated well. Will reassess within 1HR. Will continue to monitor.
--- NOTE | 2017-02-28 23:59 | NUR ---
PRN Toradol Reassessment Medication effective. Pt expresses a reduction in pain to 3/10. No s/s of ASE/distress noted at this time. Respirations even and unlabored. Will continue to monitor.
[2017-03-01 00:15] VITALS: BP 109/69
[2017-03-01 04:16] VITALS: BP 102/73
--- NOTE | 2017-03-01 07:00 | NUR ---
End of shift note Pt is a 26 yo male, A+Ox4, presenting to [facility] for Opiate/Benzo dependence. Pt has allergies to Lunesta, is on Full code status, and on Regular diet. Pt is on Fall and Seizure precautions. Pt has HX of Pituitary tumor, stomach ulcer, bilateral mastectomy, anxiety, depression, and multiple fractures. Pt is on 7 day Subutex and 3 day Valium tapers tolerated well. Pt was given PRN Toradol @2306. Pt slept for a total of 5 HRS. Last COWS: 3 and Last CIWA: 3 @0400. No s/s of distress noted at this time. Respirations even and unlabored. Will endorse to day shift nurse.
[2017-03-01 08:00] VITALS: BP 121/63
--- NOTE | 2017-03-01 08:00 | NUR ---
START OF SHIFT NOTE 26 year old admitted for Methadone and Xanax detox. Also history of use of Heroin IM and MRSA of wound. Had carpal tunnel and cubital tunnel release surgery approximately 3 weeks ago. On Subtex and Valium tapers. Allergy Lunesta. 07 received report from night RN. Last CIWA 3 and COWS 3. Slept 5 hours. 0735, pt states left elbow pain due to cubital surgery. Incision intact, no redness, warmth or drainage. Pt requesting toradol injection for pain. Will medicate for pain with PRN medication as ordered when pt returns from [facility]. Bed in low position and locked, side rails up x 2, call loco within reach. Will continue to monitor.
[2017-03-01] MEDS: GABAPENTIN 300 MG CAPSULE PO SCH ×3 (08:21→21:12)
[2017-03-01] MEDS: ACETAMINOPHEN ES 500 MG TABLET PO SCH ×3 (08:21→21:11)
[2017-03-01] MEDS: ARIPIPRAZOLE 2 MG TABLET PO SCH (08:21)
[2017-03-01] MEDS: BACLOFEN 20 MG TABLET PO SCH ×3 (08:22→21:13)
[2017-03-01] MEDS: FAMOTIDINE 20 MG TABLET PO SCH (08:22)
[2017-03-01] MEDS: ESCITALOPRAM OXALATE 10 MG TABLET PO SCH (08:22)
[2017-03-01] MEDS: DICYCLOMINE HCL 20 MG TABLET PO SCH ×3 (08:22→21:13)
[2017-03-01] MEDS: NAPROXEN 500 MG TABLET PO SCH ×2 (08:22→21:12)
[2017-03-01] MEDS: MULTIVITAMINS,THERAPEUTIC TABLET PO SCH (08:23)
[2017-03-01] MEDS: CLONIDINE HCL 0.1 MG TABLET PO SCH ×3 (08:23→21:13)
[2017-03-01] MEDS: KETOROLAC TROMETHAMINE 30 MG INJ IM PRN ×2 (08:25→18:29)
--- NOTE | 2017-03-01 08:25 | NUR ---
PRN MEDICATION ADMINISTRATION Pt reports left elbow pain at site of cubital release done approximately 3 weeks ago. Incision intact, no redness, warmth or drainage. Given Toradol injection PRN. Will reassess for effectiveness.
--- NOTE | 2017-03-01 08:55 | NUR ---
PRN MEDICATION REASSESSMENT Pt reports elbow pain decreased to mild after receiving Toradol injection. Pt also had stated that his surgeon instructed him pt wear sling for left arm x 1 month after surgery. Pt now using sling. Also instructed pt on icing site and pt has ice bag.
[2017-03-01] MEDS ORDERED: DIAZEPAM 5 MG TABLET PO SCH (09:00)
[2017-03-01] MEDS ORDERED: BUPRENORPHINE HCL 2 MG TAB.SUBL SL SCH (09:00)
[2017-03-01] MEDS ORDERED: LORAZEPAM 1 MG TABLET PO SCH (09:00)
[2017-03-01 12:00] VITALS: BP 110/63
[2017-03-01 17:00] VITALS: BP 108/59
[2017-03-01] MEDS ORDERED: DIPH50CA37 PO (18:25)
[2017-03-01] MEDS ORDERED: BACL20TA PO (18:25)
[2017-03-01] MEDS ORDERED: DICY20TA28 PO (18:25)
[2017-03-01] MEDS ORDERED: GABA-534 PO ×2 (18:25)
[2017-03-01] MEDS ORDERED: CLON0.1T14 PO (18:25)
[2017-03-01] MEDS ORDERED: NAPR500T3 PO (18:25)
[2017-03-01] MEDS ORDERED: ACET-2605 PO (18:25)
[2017-03-01] MEDS ORDERED: ESCI10TA PO (18:25)
[2017-03-01] MEDS ORDERED: FAMO20TA8 PO (18:25)
[2017-03-01] MEDS ORDERED: ARIP2TAB3 PO (18:25)
[2017-03-01] MEDS ORDERED: HYDR-3895 PO (18:25)
[2017-03-01] MEDS: MIRALAX 17 GM POWD.PACK PO PRN (18:29)
--- NOTE | 2017-03-01 18:29 | NUR ---
PRN MEDICATION ADMINISTRATION Pt complaint of constipation, given Miralax. Pt reporting left elbow post surgical pain and requesting Toradol injection, injection given.
--- NOTE | 2017-03-01 19:24 | NUR ---
END OF SHIFT NOTE 26 year old admitted for Methadone and Xanax detox. Also history of use of Heroin IM and MRSA of wound. Had carpal tunnel and cubital tunnel release surgery approximately 3 weeks ago. On Subtex and Valium tapers. Allergy Lunesta. Last COWS 3, CIWA 5. Planned discharge for tomorrow. Given Toradol injection for left elbow post surgical pain at 0825 with good relief in 30 min. Toradol injection given again at 182 for left elbow pain. Left elbow incision intact, no redness or drainage. Eating 100 to 75 percent of meals, fluid intake 1655 mg, void x 2, no stool. Given Miralax at 182 as well PRN per pt request. Report given to night RN. Night RN to reassess for Toradol effectiveness at 1928. Bed in low position and locked, side rails up x 2, call loco within reach.
[2017-03-01 20:16] VITALS: BP 112/64
[2017-03-02 00:15] VITALS: BP 119/74
[2017-03-02] MEDS: KETOROLAC TROMETHAMINE 30 MG INJ IM PRN ×2 (02:44→14:47)
--- NOTE | 2017-03-02 02:44 | NUR ---
PRN Toradol Pt c/o Left elbow pain 12/28 and requested for PRN Toradol. Medication given and tolerated well. Will reassess within 1 HR. Will continue to monitor.
--- NOTE | 2017-03-02 03:40 | NUR ---
PRN Toradol Reassessment Medication effective. Pt expresses a reduction in pain to 4/10. No s/s of ASE/distress noted at this time. Respirations even and unlabored. Will continue to monitor.
[2017-03-02 04:11] VITALS: BP 126/73
--- NOTE | 2017-03-02 07:00 | NUR ---
End of shift note Pt is a 26 yo male, A+Ox4, presenting to [facility] for Opiate/Benzo dependence. Pt has allergies to Lunesta, is on Full code status, and on Regular diet. Pt is on Fall and Seizure precautions. Pt has HX of Pituitary tumor, stomach ulcer, bilateral mastectomy, anxiety, depression, and multiple fractures. Pt has completed 7 day Subutex and 3 day Valium tapers, tolerated well, and is due for discharge today. Pt was given PRN Toradol @0244. Pt slept for a total of 2 HRS. Last COWS: 2 and Last CIWA: 1 @0400. No s/s of distress noted at this time. Respirations even and unlabored. Will endorse to day shift nurse.
[2017-03-02 08:00] VITALS: BP 110/75
--- NOTE | 2017-03-02 08:00 | NUR ---
START OF SHIFT NOTE 26 year old admitted for Methadone and Xanax detox. Also history of use of Heroin IM and MRSA of wound. Had carpal tunnel and cubital tunnel release surgery approximately 3 weeks ago. On Subtex and Valium tapers. Allergy Lunesta. Received report from night RN. Received Toradol PRN for pain last night. Slept only 2 hours. 0745, Pt states, I am withdrawing really bad. Pt eyes read, shivering, trembling, tearful. Stating he did not get pain relief from Toradol injection. States he does not feel like he is ready for discharge and that he feels he needed a longer Subutex taper. States pulse this am was 91. RN will notify discharge planner and MD. RN to medicate Pt as ordered. Bed in low position and locked, side rails up x 2, call light within reach. Will continue to monitor.
[2017-03-02] MEDS: FAMOTIDINE 20 MG TABLET PO SCH (08:38)
[2017-03-02] MEDS: NAPROXEN 500 MG TABLET PO SCH ×2 (08:38→22:24)
[2017-03-02] MEDS: GABAPENTIN 300 MG CAPSULE PO SCH ×3 (08:38→22:25)
[2017-03-02] MEDS: DICYCLOMINE HCL 20 MG TABLET PO SCH ×3 (08:39→22:24)
[2017-03-02] MEDS: ARIPIPRAZOLE 2 MG TABLET PO SCH (08:39)
[2017-03-02] MEDS: MULTIVITAMINS,THERAPEUTIC TABLET PO SCH (08:39)
[2017-03-02] MEDS: BACLOFEN 20 MG TABLET PO SCH ×3 (08:40→22:24)
[2017-03-02] MEDS: ESCITALOPRAM OXALATE 10 MG TABLET PO SCH (08:40)
[2017-03-02] MEDS: ACETAMINOPHEN ES 500 MG TABLET PO SCH ×3 (08:40→22:24)
[2017-03-02] MEDS: CLONIDINE HCL 0.1 MG TABLET PO SCH ×3 (08:42→22:25)
[2017-03-02 12:00] VITALS: BP 114/59
[2017-03-02] MEDS ORDERED: BUPRENORPHINE HCL 2 MG TAB.SUBL SL ONE (12:00)
[2017-03-02] MEDS ORDERED: LORAZEPAM 1 MG TABLET PO ONE (12:00)
[2017-03-02 17:00] VITALS: BP 106/55
--- NOTE | 2017-03-02 18:58 | NUR ---
START OF SHIFT NOTE 26 year old admitted for Methadone and Xanax detox. Also history of use of Heroin IM and MRSA of wound. Had carpal tunnel and cubital tunnel release surgery approximately 3 weeks ago. On Subtex and Valium tapers. Allergy Lunesta. Discharge held this am by . Pt received one time doses of ativan and Subutex at 1200. COWS 5 and CIWA 6 at 1200. At 1600, COWS 1 and CIWA 4. Fluid intake 1350 ml. Good intake of meals, void x 2. Report given to night RN. Bed in low position and locked, side rails up x 2, call light within reach. Will continue to monitor. Addendum: 03/02/17 at 2130 by VALERIE BAER LVN End of shift note
--- NOTE | 2017-03-02 19:11 | NUR ---
Start of shift note Received report from day shift nurse. Pt is a 26 yo male, A+Ox4, presenting to [facility] for Opiate/Benzo dependence. Pt has allergies to Lunesta, is on Full code status, and on Regular diet. Pt is on Fall and Seizure precautions. Pt has HX of Pituitary tumor, stomach ulcer, bilateral mastectomy, anxiety, depression, and multiple fractures. Pt has completed 7 day Subutex and 3 day Valium tapers, tolerated well, and is due for discharge tomorrow. No s/s of distress noted at this time. Respirations even and unlabored. Will continue to monitor.
[2017-03-02 20:15] VITALS: BP 134/67
[2017-03-03 00:19] VITALS: BP 122/80
[2017-03-03 04:22] VITALS: BP 119/78
--- NOTE | 2017-03-03 07:00 | NUR ---
End of shift note Pt is a 26 yo male, A+Ox4, presenting to [facility] for Opiate/Benzo dependence. Pt has allergies to Lunesta, is on Full code status, and on Regular diet. Pt is on Fall and Seizure precautions. Pt has HX of Pituitary tumor, stomach ulcer, bilateral mastectomy, anxiety, depression, and multiple fractures. Pt has completed 7 day Subutex and 3 day Valium tapers, tolerated well, and is due for discharge today. Pt slept for a total of 5 HRS. Last COWS: 1 and Last CIWA: 2 @0400. No s/s of distress noted at this time. Respirations even and unlabored. Will endorse to day shift nurse.
[2017-03-03 08:02] VITALS: BP 130/79
--- NOTE | 2017-03-03 08:10 | NUR ---
START OF SHIFT: RECEIVED PT A/O X 4 . HE PRESENTS WITH ANXIOUS MOOD . TAPERS COMPLETED. DISCHARGE PLANNING IN PROGRESS FOR THIS AM. HE STATES HE FEELS ANXIOUS ABOUT GOING TO TREATMENT BUT IS GOING TO TRY HIS BEST TO ACHIEVE AND MAINTAIN SOBRIETY. CIWA 1 COWS 2 WILL CONTINUE TO MONITOR AND OFFER SUPPORT.
[2017-03-03] MEDS: ACETAMINOPHEN ES 500 MG TABLET PO SCH (08:27)
[2017-03-03] MEDS: GABAPENTIN 300 MG CAPSULE PO SCH (08:27)
[2017-03-03] MEDS: DICYCLOMINE HCL 20 MG TABLET PO SCH (08:29)
[2017-03-03] MEDS: NAPROXEN 500 MG TABLET PO SCH (08:29)
[2017-03-03] MEDS: FAMOTIDINE 20 MG TABLET PO SCH (08:29)
[2017-03-03] MEDS: MULTIVITAMINS,THERAPEUTIC TABLET PO SCH (08:29)
[2017-03-03 08:30] VITALS: BP 130/79
[2017-03-03] MEDS: CLONIDINE HCL 0.1 MG TABLET PO SCH (08:30)
[2017-03-03] MEDS: BACLOFEN 20 MG TABLET PO SCH (08:31)
[2017-03-03] MEDS ORDERED: ESCITALOPRAM OXALATE 10 MG TABLET PO SCH (09:00)
[2017-03-03] MEDS ORDERED: ARIPIPRAZOLE 2 MG TABLET PO SCH (09:00)
--- NOTE | 2017-03-03 09:30 | NUR ---
DISCHARGE: PT IS A/O X4. HE DENIES S/I AND H/I. HE STATES HE IS MOTIVATED TO STAY CLEAN AND FEELS ENTHUSIASTIC. BELONGINGS RETURNED. EDUCATED PT ON DISCHARGE INSTRUCTIONS AND MEDICATIONS. MANUFACTURING PLANT TECHNICIAN ESCORTED PT TO [facility] WHERE HE WAS TRANSPORTED BY [facility] TO [facility] AT 0919.
== END 2017-03-03 09:19 | disposition other institution (70) | DRG 895 ==
LOC: SRC 06:54
PROVIDERS: ADMIT Internal Medicine; ATTEND Internal Medicine
PROC: HZ41ZZZ Group Counseling for Substance Abuse Treatment, Behavioral (ICD-10-PCS; principal; 2017-02-23)
PROC: HZ2ZZZZ Detoxification Services for Substance Abuse Treatment (ICD-10-PCS; principal; 2017-02-23)
PROC: HZ31ZZZ Individual Counseling for Substance Abuse Treatment, Behavioral (ICD-10-PCS; 2017-02-26)
DX: F11.23 Opioid dependence with withdrawal (principal); N17.9 Acute kidney failure, unspecified; F33.2 Major depressive disorder, recurrent severe without psychotic features; E87.1 Hypo-osmolality and hyponatremia; F17.210 Nicotine dependence, cigarettes, uncomplicated; F41.9 Anxiety disorder, unspecified; Z91.5 Personal history of self-harm; F13.230 Sedative, hypnotic or anxiolytic dependence with withdrawal, uncomplicated; Z81.1 Family history of alcohol abuse and dependence; Z81.8 Family history of other mental and behavioral disorders; D49.7 Neoplasm of unspecified behavior of endocrine glands and other parts of nervous system; E83.42 Hypomagnesemia; E29.1 Testicular hypofunction; Z79.899 Other long term (current) drug therapy; R73.9 Hyperglycemia, unspecified
CPT/HCPCS: 36415; 70030-TC; 80307; 80349; 80361; 83735; 85025; 86592; 86705; 86803; 87340; 87806; A4663; G0480; J1885; J2405; Q0162

== ENCOUNTER 2017-03-27 18:10 | Emergency (ER) | payer BC, OTHER ==
[~2017-03-27] VITALS: Ht 170.2 cm; Wt 32.2 kg
[~2017-03-27 18:10] MED LIST: ACET-2605 PO; ARIP2TAB3 PO; BACL20TA PO; CLON0.1T14 PO; DICY20TA28 PO; DIPH50CA37 PO; ESCI10TA PO; FAMO20TA8 PO; GABA-534 PO; HYDR-3895 PO; NAPR500T3 PO; TEST200V3 IM
[2017-03-27] MEDS ORDERED: [UNRECOGNIZED DRUG - OTHER] PO (18:46)
[2017-03-27] MEDS ORDERED: ARIP10TA9 PO (18:46)
[2017-03-27] MEDS ORDERED: LORA2TAB PO (18:46)
[2017-03-27] MEDS ORDERED: ONDA8TAB9 PO (18:46)
[2017-03-27] MEDS ORDERED: PROCHLORPERAZINE EDISYLATE 10 MG/2 ML VIAL IM ONE (19:00)
[2017-03-27] MEDS ORDERED: diphenhydrAMINE 50 MG/1 ML VIAL IM ONE (19:00)
[2017-03-27] MEDS ORDERED: KETOROLAC TROMETHAMINE 60 MG INJ IM ONE ×2 (19:00→19:10)
--- NOTE | 2017-03-27 19:06 | NUR ---
Patient discharged to home in stable conditon. Written and verbal after care instructions given. Patient verbalizes understanding of instructions.prt walks in steady gait, pt not driving.
[2017-03-27 19:08] VITALS: BP 116/74
[2017-03-27] MEDS ORDERED: diphenhydrAMINE 50 MG/1 ML VIAL ONE (19:10)
[2017-03-27] MEDS ORDERED: PROCHLORPERAZINE EDISYLATE 10 MG/2 ML VIAL ONE (19:10)
== END 2017-03-27 19:09 | disposition home or self-care (01) ==
LOC: ER 18:12
DX: G47.00 Insomnia, unspecified (principal); F41.9 Anxiety disorder, unspecified; F11.23 Opioid dependence with withdrawal; F32.9 Major depressive disorder, single episode, unspecified; Z87.891 Personal history of nicotine dependence; Z88.8 Allergy status to other drugs, medicaments and biological substances
CPT/HCPCS: A4663; J0780; J1200; J1885